=== PATIENT | female | born 1945 | race Caucasian/White ===

== ENCOUNTER → 2016-03-10 | Outpatient (CLI) | payer MEDICARE, OTHER | LOC: RT 10:17 | PROVIDERS: ATTEND Internal Medicine | DX: R07.9 Chest pain, unspecified (principal) | CPT/HCPCS: 93005 ==

== ENCOUNTER → 2016-03-17 | Outpatient (REF) | payer MEDICARE, OTHER | LOC: LAB 10:20 | PROVIDERS: ATTEND Internal Medicine | DX: R30.0 Dysuria (principal); R31.0 Gross hematuria | CPT/HCPCS: 87077; 87088; 87186 ==

== ENCOUNTER → 2016-04-06 | Outpatient (REF) | payer MEDICARE, OTHER | LOC: LAB 15:46 | PROVIDERS: ATTEND Internal Medicine | DX: R51 Headache (principal) | CPT/HCPCS: 85652 ==

== ENCOUNTER → 2016-05-26 | Outpatient (CLI) | payer MEDICARE, OTHER ==
[~2016-05-26] MED LIST: AMOX500C5 PO; ENAL5TAB PO; FLX20C PO; GLIP5TAB26 PO; HCTZ12.5T PO; METF500T4 PO; SMV20T PO
[2016-05-26 08:41] LABS: BASOPHILS % (AUTO) 0 % (0-2); EOSINOPHILS # (AUTO) 0.2 10^3uL; EOSINOPHILS % (AUTO) 4 % (0-4); LYMPHOCYTES # (AUTO) 1.9 X10^3; MEAN CORPUSCULAR HEMOGLOBIN 31.2 PG (26.0-34.0); MEAN CORPUSCULAR HGB CONC 33.4 g/dL (31.0-37.0); MEAN CORPUSCULAR VOLUME 93 FL (80-100); MEAN PLATELET VOLUME 12.3 FL (6.0-9.5); MONOCYTES # (AUTO) 0.5 X10^3; MONOCYTES % (AUTO) 12 % (3-11); NEUTROPHILS # (AUTO) 1.8 X10^3; NEUTROPHILS % (AUTO) 41 % (51-67); PLATELET COUNT 145 10^3uL (150-450); WHITE BLOOD COUNT 4.34 10^3uL (4.0-11.0)
[2016-05-26 08:53] LABS: BILIRUBIN,URINE Negative (Negative); CLARITY,URINE Clear; COLOR,URINE Yellow; GLUCOSE, URINE (UA) Negative (Negative); LEUKOCYTE ESTERASE, URINE Negative (Negative); UROBILINOGEN,URINE 0.2 mg/dL (0.2-1.0)
[2016-05-26 09:29] LABS: ALBUMIN 4.2 g/dL (3.4-5.0); ANION GAP 16.4 MEQ/L (3-15); CALCULATED IONIZED CALCIUM 3.9 mg/dL (3.8-4.6); TOTAL PROTEIN 7.2 g/dL (6.4-8.5)
[2016-05-26 09:46] LABS: ERYTHROCYTE SEDIMENTATION RT* 11 mm/hr (0-23)
--- NOTE | 2016-05-26 12:03 | Diagnostic Imaging Report ---
CHEST PA/LAT (2 VIEW)* INDICATION: Preop evaluation for hip arthroplasty. COMPARISON: CT chest of 12/22/2014 FINDINGS: No focal pneumonic consolidation, pleural effusion or pneumothorax. Previously seen right middle lobe subsegmental atelectasis has resolved. Normal heart size and pulmonary vasculature. IMPRESSION: No acute cardiopulmonary process. Dictated by: Dictated on workstation # [id number]
== END ==
LOC: LAB 08:28
PROVIDERS: ATTEND Internal Medicine
DX: Z01.818 Encounter for other preprocedural examination (principal); Z01.812 Encounter for preprocedural laboratory examination; M16.12 Unilateral primary osteoarthritis, left hip; M16.11 Unilateral primary osteoarthritis, right hip; Z01.89 Encounter for other specified special examinations; E11.9 Type 2 diabetes mellitus without complications
CPT/HCPCS: 36415; 71020; 80053; 81003; 83036; 85025; 85652

== ENCOUNTER 2016-07-06 08:15 | Outpatient (RCR) | payer MEDICARE, OTHER ==
--- NOTE | 2016-06-28 08:37 | PT/OT/ST INITIAL EVALUATION ---
Department of Health and Human Services Form Approved [facility] [employer] OMB No. [id number] PLAN OF CARE/ASSESSMENT FOR OUTPATIENT REHABILITATION (Complete for Initial Claims Only) 1. PATIENT'S NAME Gena Jacob 2. ACC # [id number] [facility]. [id number] 4. PROVIDER NO. [id number] 5. TYPE: PT 6. PRIOR HOSPITALIZATION NA 7. PRIMARY DX Left total hip arthroplasty 8. SECONDARY DX NA 9. ONSET DATE 06/05/2016 10. REFERRAL DATE 06/05/2016 11. SOC. DATE 06/26/2016 12. TIME OF EVAL 1:05 p.m. to 2:10 p.m. [address] REFERR[address] PHYSICIAN Dr. Irwin Ward 13. CHARGES/UNITS NA 14. G CODES [id number] 15. PRIOR LEVEL OF FUNCTION; PERTINENT HISTORY (Prior therapy results, reason for referral.) S: Prior to therapy the patient consented to today's evaluation and treatment. The patient is a 71-year-old female referred to physical therapy by Dr. Ward to address left total hip arthroplasty. Personal health rating: The patient rates overall and general health as good. 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 The patient reports doing the splits frequently when she was younger, and attributes this to perhaps how she developed arthritis in the left hip. The patient also had a fall 12 years ago that resulted in a fracture of the transverse process of the L3 vertebra and at that time fell on her left hip. Patient states this may have contributed to her left hip pain. Primary Complaint: The patient's primary complaints today are limited mobility with an assistive device and pain when rolling over in bed at night as she is a side sleeper. Patient also does state having left side weakness as a result of [place]ain[place] in the past. Prior level of function: Prior to the left total hip replacement, patient was ambulating without an assistive device, but was limited in some of her functional mobility due to pain. Current level of function: The patient is currently ambulating with a front-wheeled walker and mild antalgic gait. The patient is also sleeping in a recliner due to being uncomfortable lying in bed. The patient reports attempting to use a single-point cane yesterday, but was unsuccessful due to feeling unsteady. Therapy History: The patient has not seen physical therapy for this current issue at this time. Pain level: Maximum pain level 7/10, current 2/10. Obstacles to delivery of care: None identified at this time. Aggravating factors: Rolling over in bed. Relieving factors: During the first 2 weeks after the total hip replacement the patient was using ice for pain relief, but has not been using ice for the past week. The patient is also taking pain medications for her pain and reports that this is helping. Diagnostic testing: None reported at this time. Past medical history: The patient reports having a past medical history of arthritis, bone fracture in the right foot in the past as a result of a fall, transverse process fracture at L3 as a result of a fall, diabetes, hypertension, and [place]ain[place]. Current medications: The patient reports taking tramadol, metformin, hydrochlorothiazide, Enalapril, and simvastatin. Patient's Goal: The patient reports desiring to return to gardening, descending stairs to do laundry and get back ambulating without an assistive device. 16. INITIAL ASSESSMENT/SAFETY PRECAUTIONS/MEDICAL COMPLICATIONS (Level of function at start of care. Be specific, use objective measures, list problems.) O: APPEARANCE, OBSERVATION AND GAIT: The patient is a pleasant female who presents at physical therapy ambulating with a front-wheeled walker, reciprocal pattern, shorter step length on the left, and mild bilateral upper extremity support on the walker. The patient is also ambulating with a mild antalgic gait on the left. RANGE OF MOTION/FLEXIBILITY: Hip flexion on the right 105 degrees. Left not tested due to hip precautions. Knee flexion on the right 145 degrees, left 132 degrees, left hip abduction 12 degrees. CIRCUMFERENTIAL MEASUREMENTS: Circumferential edema measures were taken at the inguinal area. The inguinal measurement on the left is 55 cm, right 63 cm. STRENGTH: Dorsiflexion on the right 5/5, left 4+/5. Hip flexion on the right 4/5, left not tested. Hip internal rotation right 5/5, left not tested. Hip external rotation right 4+5, left not tested. Knee flexion on the right 5/5, left 5/5 and knee extension 5/5, left 5/5. TODAY'S TREATMENT: Today's treatment consisted of education on the findings of the PT evaluation and the role of physical therapy and the plan of care, light therapeutic exercise, initiation of HEP, and the use of a vasopneumatic device upon completion of the session with cold and compression. 17. 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 Skilled physical therapy services are needed for hip strengthening, increased range of motion, gait training, and functional training in order to reach patient goals. OUTCOME ASSESSMENT: The patient completed the Lower Extremity Functional Scale with a score of 14/80. INFORMED CONSENT: The diagnosis, prognosis, treatment plan, risks and expected outcomes were discussed with the patient and the patient did agree to today's established plan of care. SHORT TERM GOALS: 1. In 1 week the patient will be independent and compliant with home exercise program in order to promote progress in therapy. 2. In 3 weeks the patient will demonstrate hip abduction left active range of motion in supine from 12 degrees to 40 degrees in order to assist in dressing. 3. In 5 weeks the patient will demonstrate 4/5 bilateral hip abduction strength in order to promote normal gait mechanics without an assistive device. 4. In 6 weeks the patient will report a reduction in the Lower Extremity Functional Index disability from 14/80 to 64/80 in order to return to household activities. P: Plan to treat the patient 2 times a week for 6 weeks in order to address hip weakness, decreased range of motion, gait mechanics and functional training. Treatment to include modalities as indicated for pain relief or to assist in manual therapy, manual therapy including myofascial release, soft tissue mobilization, therapeutic exercise to increase range of motion and strength, active range of motion, gait training without an assistive device, balance and proprioceptive training, neuro reeducation and the patient's home exercise program. 18. FREQUENCY 2 times per week 19. DURATION 3 weeks 20. FUNCTIONAL LEVEL (End of claim period) 21. PHYSICIAN SIGNATURE ? ON FILE OR ENTER HERE: 22. DATE: I certify the need for these services furnished under this plan of care and if for partial hospitalization. 23. CERTIFICATION FROM THROUGH FORM [id number]
== END 2016-07-10 10:15 | disposition home or self-care (01) ==
LOC: PT 08:15
PROVIDERS: ATTEND Orthopaedic Surgery Adult Reconstructive Orthopaedic Surgery
DX: M16.12 Unilateral primary osteoarthritis, left hip (principal)
CPT/HCPCS: 97016; 97110; 97112; 97161; G8978; G8979